=== PATIENT | female | born 1950 | race Caucasian/White ===

== ENCOUNTER 2019-05-29 08:32 | Emergency (ER) | payer MEDICARE, OTHER ==
[~2019-05-29] VITALS: Ht 167.6 cm; Wt 77.1 kg
[2019-05-29] MEDS ORDERED: AMBIEN 5 MG TABL5 M1 PO (09:01)
[2019-05-29] MEDS ORDERED: BENICAR20 MG PO (09:01)
[2019-05-29] MEDS ORDERED: AUGMENTIN 500-1 EACH PO (09:52)
[2019-05-29 10:07] VITALS: BP 98/53
== END 2019-05-29 10:08 | disposition home or self-care (01) ==
LOC: M.ERS 08:32
DX: S61.411A Laceration without foreign body of right hand, initial encounter (principal); Z88.2 Allergy status to sulfonamides; W54.0XXA Bitten by dog, initial encounter; Y93.89 Activity, other specified; Y92.89 Other specified places as the place of occurrence of the external cause; Y99.8 Other external cause status